=== PATIENT | female | born 1990 | race Caucasian/White ===

== ENCOUNTER 2022-02-20 13:05 | Outpatient (CLI) | payer OTHER, SELFPAY ==
[2022-02-20 14:01] LABS: Basophils Percent Auto 0.3 % (0.0-3.0); Eosinophils Percent Auto 0.8 % (0.0-7.0); Hematocrit 39.8 % (33.0-51.0); Hemoglobin* 13.3 gm/dL (12.0-16.0); Immature Granulocytes Pct Auto 0.3 %; Lymphocytes Percent Auto 26.4 % (20-44); Mean Corpuscular HGB Conc 33 gm/dL (32-36); Mean Corpuscular Hemoglobin 29 pg (26-34); Mean Corpuscular Volume 86 fL (80-100); Monocytes Percent Auto 5.3 % (0.0-11.0); Neutrophils Percent Auto 66.9 % (42.0-72.0); Platelet Count* 370 K/uL (140-440); RDW Coefficient of Variation % 12.3 % (11.5-15.5); Red Blood Count 4.63 m/uL (4.00-5.20); White Blood Count* 12.75 K/uL (4.50-11.00)
[2022-02-20 14:10] LABS: Hemoglobin A1C* 5.2 % (0-5.6)
[2022-02-20 15:01] LABS: Creatinine Urine 53.4 mg/dL; Total Protein Urine 11 mg/dL
[2022-02-20 15:16] LABS: Slide Review Reflex No
[2022-02-20 15:48] LABS: Alanine Aminotransferase* 13 U/L (4-35); Aspartate Amino Transferase* 18 U/L (12-35)
[2022-02-20 15:49] LABS: Blood Urea Nitrogen* 6 mg/dL (5-24)
[2022-02-20 16:04] LABS: Creatinine* 0.4 mg/dL (0.5-1.5); Estimated Glomerular Filt Rate 136 ml/min
[2022-02-20 16:20] LABS: Hepatitis B Surface Antigen* Negative (Negative)
[2022-02-20 16:31] LABS: HIV 1/2/P24 Combo Screen* Negative (Negative)
[2022-02-20 16:38] LABS: Hepatitis C Virus Antibody* Negative (Negative)
[2022-02-20 18:00] LABS: Chlamydia DNA Amplified* NOT DETECTED (No Detected); GC DNA Amplified* NOT DETECTED (No Detected)
[2022-02-22 12:56] LABS: Varicella-Zoster Virus Ab, IgG 700.8 IV
[2022-02-22 12:57] LABS: Rubella Antibody IgG 17.3 IU/mL
[2022-02-22 15:55] LABS: Rapid Plasma Reagin (RPR) Non Reactive (Non Reactive)
== END 2022-02-20 13:06 | disposition home or self-care (01) ==
PROVIDERS: Visit Provider Obstetrics & Gynecology
DX: Z36.89 Encounter for other specified antenatal screening (principal); O09.291 Supervision of pregnancy with other poor reproductive or obstetric history, first trimester
CPT/HCPCS: 76801; 82565; 82570; 83036; 84156; 84450; 84460; 84520; 85025; 86592; 86703; 86762; 86787; 86803; 86850; 86900; 86901; 87086; 87340; 87491; 87591

== ENCOUNTER 2022-02-27 14:15 | Outpatient (CLI) | payer OTHER, SELFPAY ==
[2022-02-27 21:06] LABS: Collection Time Urine 1400 Hours; Total Volume 24 Hour Urine 1300 ml; Urine Creatinine mg/24 Hour 0 mg/Day
[2022-02-27 21:59] LABS: Total Protein 24 Hour Urine 130 mg/dL; Total Protein Urine 10 mg/dL
[2022-02-27 22:00] LABS: Creatinine Urine 105.9 mg/dL
== END 2022-02-27 14:16 | disposition home or self-care (01) ==
LOC: LONREF 14:16
PROVIDERS: Visit Provider Obstetrics & Gynecology
DX: R80.9 Proteinuria, unspecified (principal)
CPT/HCPCS: 84156

== ENCOUNTER 2022-05-19 10:08 | Outpatient (CLI) | payer OTHER, SELFPAY ==
--- NOTE | 2022-05-19 10:15 | CRLHL7_ITS ---
For Patients: As a result of the Century Cures Act, medical imaging exams and procedure reports are released immediately into your electronic medical record. You may view this report before your referring provider. If you have questions, please contact your health care provider. INDICATION: Evaluate anatomy. COMPARISON: 02/20/2022 TECHNIQUE: Real time delgado scale imaging of the fetus was performed as well as color Doppler analysis of the umbilical vessels. FINDINGS: Sonographic imaging demonstrates a single living intrauterine gestation. Fetus demonstrates a regular cardiac rate of 148 beats per minute. Fetus has a breech position. The placenta lies posteriorly without evidence of placenta previa. The placenta is located 2.7 cm from the internal cervical os. Amniotic fluid volume appears normal. Single deepest vertical pocket: 3.9 cm. The cervix is closed and measures 3.7 cm in length. The composite ultrasound gestational age is calculated at 20 weeks 1 day with an estimated sonographic due date of 10.05.22. The estimated weight is 335 grams which lies at the 54th %. The following biometric measurements were obtained: Biparietal diameter: 4.7 cm/20 weeks 1 day 55th% Head circumference: 17.5 cm/20 weeks 0 days 42nd% Abdominal circumference: 15.2 cm/20 weeks 3 days 60th% Femur length: 3.2 cm/19 weeks 6 days 36th% The HC/AC ratio measures: 1.15 range (1.07-1.25) On anatomic survey, there is a normal appearance of the cavum septi pellucidi, cisterna magna and cerebellum. Left choroid plexus cyst measuring 1.2 cm. Several subcentimeter right choroid plexus cysts. The nose, lips, and facial profile appear normal. The cervical, thoracic and lumbar spine are well visualized and appear normal. There is a normal four-chamber heart view and the left and right ventricular outflow tracts appear normal. The diaphragm and stomach appear normal. The kidneys and bladder also appear normal. There is a normal three-vessel cord and there is an eccentric cord insertion site. The four extremities appear normal. IMPRESSION: Bilateral choroid plexus cysts are present measuring up to 1.2 cm on the left. Remainder of the anatomic survey is normal. Level 2 ultrasound recommended. Sonographic gestational age 20 weeks 1 day and sonographic due date 10/05/2022. Good correlation with dates. Estimated weight 54th percentile. Abdominal circumference 60th percentile. Dictated by Mick Ayoub MD @ 05/19/2022 11:35:50 AM (Electronically Signed)
== END 2022-05-19 10:09 | disposition home or self-care (01) ==
LOC: US 10:09
PROVIDERS: Visit Provider Obstetrics & Gynecology
DX: Z34.92 Encounter for supervision of normal pregnancy, unspecified, second trimester (principal); Z3A.20 20 weeks gestation of pregnancy
CPT/HCPCS: 76805

== ENCOUNTER 2022-05-24 13:04 | Outpatient (CLI) | payer OTHER, SELFPAY | END 2022-05-24 13:05 | disposition home or self-care (01) | LOC: US 13:04 | PROVIDERS: Visit Provider Pediatrics Neonatal-Perinatal Medicine | DX: Z34.92 Encounter for supervision of normal pregnancy, unspecified, second trimester (principal); Z3A.20 20 weeks gestation of pregnancy | CPT/HCPCS: 76816 ==

== ENCOUNTER 2022-06-07 12:45 | Outpatient (RCR) | payer OTHER, SELFPAY ==
[2022-06-05 14:12] LABS: Creatinine* 0.4 mg/dL (0.5-1.5); Estimated Glomerular Filt Rate 136 ml/min
[2022-06-05 15:00] VITALS: BP 106/78; PULSE 88; RESP 18; TEMP 37; O2SAT 98
--- NOTE | 2022-06-05 15:50 | PC.NURSE ---
This OB RN was at patient's bedside at 1455 to assess heart tones with doppler. Heart tones auscultated from 138bpm-144bpm over a period of 60 seconds.
[2022-06-05 16:23] VITALS: BP 102/67; PULSE 75; RESP 18; TEMP 36.8; O2SAT 99
[2022-06-05 17:20] VITALS: BP 110/76; PULSE 91; RESP 18; TEMP 36.7; O2SAT 98
--- NOTE | 2022-06-05 17:49 | PC.NURSE ---
Pt arrived for Remdesivir infusion. Labs drawn, infusion complete without complication, remained for 1 hour for reassessment. Pt vitals stayed within normal limits. IV removed per patient request. Pt will call when she arrived 06/06 for second infusion around 1300. Pt left via ambulation @1730
[2022-06-06 15:08] VITALS: BP 108/68; PULSE 78; RESP 18; TEMP 36.7; O2SAT 98
--- NOTE | 2022-06-06 15:10 | PC.NURSE ---
Pt arrived for Remdesivir infusion at 1300. infusion complete without complication, Pt vitals stayed within normal limits. New IV in right distal hand, wrapped in coban. Pt will call when she arrives 06/07 for second infusion around 1300. Pt left via ambulation @1510
[2022-06-07 13:10] VITALS: BP 108/67; PULSE 85; RESP 16; TEMP 36.8; O2SAT 96
[2022-06-07 14:28] VITALS: BP 103/65; PULSE 83; RESP 16; TEMP 36.6; O2SAT 96
--- NOTE | 2022-06-07 14:34 | PC.NURSE ---
Discharge: Patient pleasant and cooperative. Patient vitally stable x2, second vital BP soft 103/65. Patient tolerated infusion well. Patient IV removed, catheter intact. Patient refused 1 hr observation after infusion, as patient reported to symptoms with first two infusions. Patient left the floor by foot at 1433.
== END 2022-06-07 14:34 | disposition home or self-care (01) ==
LOC: MS OUT 12:45
PROVIDERS: Visit Provider Family Medicine
DX: U07.1 COVID-19 (principal)
CPT/HCPCS: 36415; 82565; 96365; 99211; J7050

== ENCOUNTER 2022-07-10 14:04 | Outpatient (CLI) | payer OTHER, SELFPAY ==
[2022-07-10 14:36] LABS: Appearance Urine Cloudy (Clear); Bilirubin Urine Negative (Negative); Blood Urine Trace-intact (Negative); Color Urine Yellow (Yellow); Glucose Urine Negative (Negative); Ketones Urine 4+ (Negative); Leukocyte Esterase Urine 3+ (Negative); Nitrite Urine Negative (Negative); Protein Urine 1+ (Negative); Urobilinogen Urine 0.2 (0.2-1.0)
[2022-07-10 14:51] LABS: Bacteria Urine Moderate; Squamous Epithelial Cell Urine Moderate (None-Few)
--- NOTE | 2022-07-10 14:58 | W.PM.OBO ---
OB Outpatient HPI History of Present Illness History of Present Illness: 31 year old G2 P 0-1-0-1 woman at 27 weeks, 3 days gestation by 1st trimester US, [facility] 10/06/2022, presents with crampy pelvic pain. She has had this intermittently since . She feels the cramping is primarily in the groin and central low pelvis. She has been utilizing support belt, but is uncomfortable to wear at work. Her 1st delivery was at 36 weeks, 3 days gestation in the setting of induction of labor for severe preeclampsia. Baby moving naturally: Yes Bleeding: No Contractions: Yes Leaking fluid: No Meds Home Medications and Allergies Home Medications Medication Instructions Recorded Confirmed Type prenat.vits,apoorva,tnn-jrdr-jnvvk 1 tab PO QDAY 02/20/22 07/10/22 History aspirin 81 mg capsule 81 mg PO QDAY 05/19/22 07/10/22 History Allergies Allergy/AdvReac Type Severity Reaction Status Date / Time nickel Allergy Intermediate Rash Verified 06/16/22 10:11 [facility] Medical History (Updated 07/10/22 @ 15:01 by Marci Sullivan MD) History of blood transfusion History of hemorrhage History of delivery, currently History of severe pre-eclampsia History of vaginal delivery Social History (Updated 02/21/22 @ 09:00 by Riri Bergeron MD) Narrative: Cis-gender, heterosexual, woman Relationship status: . Spouse/Partner: Janna Education: [employer] Occupation: Dentist Tobacco: Lifetime nonsmoker E-cigarettes: No Alcohol: Rare intake prior to : 0-1 serving per week, no intake since positive test. Illicit/recreational drugs: No Safety concerns at home or work: No Dietary restriction(s): No Exercise: No. Smoking Status: Never smoker Little interest or pleasure in doing things: not at all Feeling down, depressed, or hopeless: not at all History History 2 Elective abortions 0 Para 1 Spontaneous abortions 0 Hx # Term Pregnancies 0 Ectopic pregnancies 0 Hx # Pregnancies 1 Multiple births 0 Number of Living Children 1 Past Pregnancies Del. Date GA/Weeks Outcome Route wt Inf Gender Labor Lgth Anesthesia Location Provider Compli 05/01/21 36 live - vaginal delivery 7 lb 1 oz Male 36 hours epidural Gloria Hong preeclampsia placenta previa other 05/01/21 36 live - Male epidural Riri Bergeron MD preeclampsia hemorrhage Delivery Date: 05/01/21 Last Updated by: Liz Goodwin Post- hemorrhage Delivery Date: 05/01/21 Last Updated by: Riri Bergeron MD Received a blood transfusion: 2u pRBC's, 1u FFP. OB - H&P: Exam Physical Exam Narrative: General: Pleasant, no acute distress Abdomen: Soft, nontender, Gravid Lower extremities: No edema or erythema Cervical exam: Closed, approximately 50%, high, posterior, firm Urinalysis notable for 4+ ketones, 3+ leukocyte esterase, many bacteria and squamous cells. Urine culture pending. fibronectin negative. Labs Labs Laboratory Tests 07/10/22 07/10/22 Range/Units 14:15 14:14 Urine Color Yellow (Yellow) Urine Appearance Cloudy A (Clear) Urine pH 7.0 (5.0-8.5) Ur Specific [place] 1.020 (1.000-1.030) Urine Protein 1+ A (Negative) Urine Glucose (UA) Negative (Negative) Urine Ketones 4+ A (Negative) Urine Blood Trace-intact A (Negative) Urine Nitrite Negative (Negative) Urine Bilirubin Negative (Negative) Urine Urobilinogen 0.2 (0.2-1.0) Ur Leukocyte Esterase 3+ A (Negative) Urine RBC 2-5 A (0-2) Urine WBC 10-25 A (0-5) Ur Squamous Epith Cells Moderate A (None-Few) Urine Bacteria Moderate A (None) Fibronectin Pending Assessment and Plan Assessment and plan (1) Pelvic cramping in antepartum period: Status: Acute Assessment and Plan: Fluids were encouraged during her stay in triage. No labor. The distribution of the cramping suggests either pubic symphysis pain, round ligament pain bilaterally, or both. I recommended maternity panty hose or something similar for stabilization of uterus. She will follow up as scheduled on Sunday. Time Spent with Patient Time with Patient: less than 15 minutes Disposition: Sent Home from ED
[2022-07-10 15:02] LABS: Fetal Fibronectin* Negative (Negative)
--- NOTE | 2022-07-10 15:07 | PC.OBNST ---
NST Note NST Note Start: 07/10/22 13:56 Freq: ONCE Status: Discharge Protocol: Document 07/10/22 13:56 KAYLEIGH (Rec[facility] 07/10/22 15:07 [facility] [place] [id number]) NST Note 2 Para (# of births) 1 EDC 10/06/22 Gestational Age In Weeks & Days 27 Weeks & 3 Days Patient Presented with Complaint(s) of Contractions/cramping Other Complaints Patient was having intense abdominal craming and pressure . Reactive Yes Appropriate for Gestational Age Yes ZIGGY Ardon Date 07/10/22 Reactive Yes Appropriate for Gestational Age Yes ZIGGY Goldberg Date 07/10/22 OB NST charge Yes Complete NST Note via Write Note Yes The provider's electronic signature indicates the NST is reactive/appropriate for gestational age. *Note to provider: If an addendum is required, open the patient's chart and click on the note under the Nurse/Allied Health tab.
== END 2022-07-10 14:59 | disposition home or self-care (01) ==
LOC: OB OUT 14:04 → OB 14:05
PROVIDERS: Visit Provider Obstetrics & Gynecology
DX: O26.899 Other specified pregnancy related conditions, unspecified trimester (principal); Z3A.27 27 weeks gestation of pregnancy
CPT/HCPCS: 59025; 81003; 81015; 84112; 87086; 99213

== ENCOUNTER 2022-07-14 14:36 | Outpatient (CLI) | payer OTHER, SELFPAY | END 2022-07-14 14:37 | disposition home or self-care (01) | PROVIDERS: Visit Provider Obstetrics & Gynecology | DX: O26.893 Other specified pregnancy related conditions, third trimester (principal); Z67.91 Unspecified blood type, Rh negative; Z3A.28 28 weeks gestation of pregnancy | CPT/HCPCS: 86592; 86850 ==

== ENCOUNTER 2022-08-11 07:20 | Outpatient (CLI) | payer OTHER, SELFPAY ==
--- NOTE | 2022-08-11 07:15 | CRLHL7_ITS ---
For Patients: As a result of the Cures Act, medical imaging exams and procedure reports are released immediately into your electronic medical record. You may view this report before your referring provider. If you have questions, please contact your health care provider. INDICATION: COVID in . Follow up growth. TECHNIQUE: Transabdominal 3rd trimester obstetrical ultrasound. COMPARISON: May 24, 2022. May 19, 2022. FINDINGS: Single living intrauterine in vertex presentation. heart rate 139 beats per minute. Normal amniotic fluid. Single deepest pocket measurement 4.1 cm. Posterior placenta. Biparietal diameter 8.1 cm, 32 weeks 4 days, 58th percentile. Head circumference 30.4 cm, 33 weeks 5 days, 61st percentile. Abdominal circumference 29.9 cm, 33 weeks 6 days, 92nd percentile. Femur length 6.1 cm, 31 weeks 5 days, 31st percentile. Composite calculated ultrasound age 32 weeks 0 days with a sonographic due date of October 06, 2022. Estimated weight 2128 g which lies at the 76 percentile. Normal head to abdominal circumference ratio 1.02 (0.96-1.11). Femur length to abdominal circumference ratio 20.47%. When compared when compared to May 19, 2022 there has been appropriate growth and maturation. IMPRESSION: Single living intrauterine in vertex presentation. Posterior placenta. Composite calculated ultrasound age 33 weeks 0 days with a sonographic due date of September 29, 2022. Dictated by Héctor Browning MD @ 08/11/2022 9:50:30 AM (Electronically Signed)
== END 2022-08-11 07:21 | disposition home or self-care (01) ==
LOC: US 07:20
PROVIDERS: PCP Obstetrics & Gynecology; Visit Provider Obstetrics & Gynecology
DX: O98.513 Other viral diseases complicating pregnancy, third trimester (principal); U07.1 COVID-19; Z3A.32 32 weeks gestation of pregnancy
CPT/HCPCS: 76816

== ENCOUNTER 2022-09-08 11:22 | Outpatient (CLI) | payer OTHER, SELFPAY | END 2022-09-08 11:23 | disposition home or self-care (01) | PROVIDERS: PCP Obstetrics & Gynecology; Visit Provider Obstetrics & Gynecology | DX: Z34.93 Encounter for supervision of normal pregnancy, unspecified, third trimester (principal); O09.293 Supervision of pregnancy with other poor reproductive or obstetric history, third trimester; Z3A.36 36 weeks gestation of pregnancy | CPT/HCPCS: 82565; 82570; 84156; 84450; 84460; 84520; 87081; 87653 ==